=== PATIENT | male | born 1980 | race Caucasian/White ===

== ENCOUNTER 2018-06-11 16:03 | Emergency (ER) | payer SELFPAY ==
[2018-06-11 16:03] VITALS: BP 152/100; PULSE 114; RESP 16; TEMP 36.8; O2SAT 97; BMI 25.1
--- NOTE | 2018-06-11 16:20 | RAD_ITS ---
STUDY: X-RAY - LEFT KNEE REASON FOR EXAM: Male, 38 years old. Left knee pain for one year. TECHNIQUE: 4 view(s) of the knee. COMPARISON: None. FINDINGS: Normal visualized distal femur. Normal visualized proximal tibia and fibula. Normal proximal tibiofibular articulation. There is no acute fracture, dislocation or destructive osseous pathology. Normal medial femorotibial compartment. Normal lateral femorotibial compartment. Normal patellofemoral articulation. There is no demonstrated joint effusion. The soft tissue structures are unremarkable. RAD/Knee 4 or More Views IMPRESSION: Normal x-ray examination of the knee. Electronically Signed: Sabino Haynes DO at 16:42 EDT Tel [phone], Service support ,
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
--- NOTE | 2018-06-11 16:47 | ED.DEP ---
ED Disposition - Plan for ED Patient: Chief Complaint: Lower Extremity Injury Instructions: ED Knee Pain [facility] Prescriptions: Naproxen [Naprosyn] 500 mg PO BID PRN #20 tablet Referrals: Theodore Polo [Primary Care Provider] -
== END 2018-06-11 18:14 | disposition home or self-care (01) ==
LOC: ED 16:59
PROVIDERS: Emergency Provider Emergency Medicine; Family Provider Family Medicine; PCP Family Medicine
DX: M25.562 Pain in left knee (principal); G89.29 Other chronic pain
CPT/HCPCS: 73564; 99282

== ENCOUNTER 2018-06-24 20:48 | Emergency (ER) | payer SELFPAY ==
[2018-06-24 20:49] VITALS: BP 166/89; PULSE 109; RESP 14; TEMP 37.2; O2SAT 97; BMI 26.9
--- NOTE | 2018-06-24 21:25 | RAD_ITS ---
STUDY: X-RAY - LEFT SHOULDER REASON FOR EXAM: Male, 38 years old. Injury TECHNIQUE: 2 view(s) of the shoulder. COMPARISON: None. FINDINGS: There is comminuted fracture at the clavicle midshaft with overriding of fracture fragments. The glenohumeral and acromioclavicular joints are intact. There is no dislocation. No osseous destruction. IMPRESSION: Comminuted fracture of the left clavicular midshaft with overriding of fracture fragments Electronically Signed: Jaime Deluna MD at 21:58 EDT Tel , Service support , RAD/Shoulder min 2 Views
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
--- NOTE | 2018-06-24 22:21 | ED.DEP ---
ED Disposition - Plan for ED Patient: Chief Complaint: Upper Extremity Injury Instructions: ED Fx Clavicle Prescriptions: Hydrocodone Bitart/Apap 5-325 [[place] 5MG-325MG] 1 tab PO Q6H PRN PRN 3 Days #10 tab PRN Reason: Pain Referrals: Theodore Polo [Primary Care Provider] - Caprice Panchal DO [STAFF PHYSICIAN] -
[2018-06-24] MEDS: HYDROcodone Bitartrate/Apap 5/325 Tablet PO ×2 (22:27)
[2018-06-24 22:39] VITALS: RESP 16
== END 2018-06-24 22:53 | disposition home or self-care (01) ==
PROVIDERS: Emergency Provider Emergency Medicine; Family Provider Family Medicine; PCP Family Medicine
DX: S42.002A Fracture of unspecified part of left clavicle, initial encounter for closed fracture (principal); V86.59XA Driver of other special all-terrain or other off-road motor vehicle injured in nontraffic accident, initial encounter; Y93.9 Activity, unspecified; Y92.9 Unspecified place or not applicable; Z72.0 Tobacco use
CPT/HCPCS: 73030; 99283

== ENCOUNTER 2018-07-09 12:26 | Day surgery (SDC) | payer SELFPAY ==
[2018-07-09] VITALS (10 sets, daily range): BP systolic 124–140; BP diastolic 81–98; PULSE 55–93; RESP 14–20; TEMP 36.4–37.6; O2SAT 93–100; BMI 26.2
[2018-07-09] MEDS: Cefazolin 2 GM in 0.9% Normal Saline 100 ML IV (14:05)
--- NOTE | 2018-07-09 14:15 | RAD_ITS ---
STUDY: X-RAY - LEFT CLAVICLE REASON FOR EXAM: Male, 38 years old. Fluoroscopic guided ORIF TECHNIQUE: 2 view(s) of the clavicle. COMPARISON: None. FINDINGS: Fluoroscopic guided views of the left clavicle were obtained status post ORIF of comminuted midshaft fracture. Fracture fragments are in anatomic alignment and position RAD/Clavicle IMPRESSION: Status post ORIF mid clavicular fracture Electronically Signed: Raffi Menezes MD at 17:06 EDT , Service support ,
[2018-07-09] MEDS: Bupivacaine 0.25% 30 ML Vial (16:15)
--- NOTE | 2018-07-09 16:17 | DCINST_ITS ---
Discharge Diet: No Restrictions - sling at all times, leave dressing on until seen in postop clinic, if get incision wet, remove and replace, may move elbow and hands as tolerated Discharge Activity: May Not Drive May shower in (days): 1 Ice area for (Minutes): 20 - Every hour while awake. Weight Bearing Status: Weight bearing as tolerated Keep extremity elevated above heart level: Operative Extremity Call your doctor if your incision/area has: Continuous Slow Oozing, Sudden Increased Bleeding, Increased Pain/ Swelling, Increased Redness, Foul Smelling Discharge Call your doctor if you observe: Fever of 101 or Higher, Coldness, Increased Pain, Numbness or Tingling, Change in Color, Calf discomfort Allergies/Adverse Reactions: Allergies No Known Allergies Allergy (Verified 07/01/18 14:32) Medications to take at Discharge Ibuprofen 600 mg PO PRN PRN 07/07/18 Multivitamin [Multiple Vitamins] 1 each PO DAILY 07/07/18 Tramadol HCl [Ultram] 50 mg PO PRN PRN 07/07/18 Hydrocodone Bitart/Apap 5-325 [[place] 5MG-325MG] 1 - 2 tablet PO Q6H PRN PRN 5 Days #40 tablet 07/09/18 Zolpidem Tartrate [Ambien (Generic)] 5 mg PO QHS PRN PRN #14 tablet 07/09/18 The following prescriptions were given: Hydrocodone Bitart/Apap 5-325 [[place] 5MG-325MG] 1 - 2 tablet PO Q6H PRN PRN 5 Days #40 tablet PRN Reason: Pain Zolpidem Tartrate [Ambien (Generic)] 5 mg PO QHS PRN PRN #14 tablet PRN Reason: Insomnia Primary Care Physician: Theodore Polo [Primary Care Provider] - Test Results: Test results from this visit will be discussed in further detail at your follow- up appointment, if applicable. Please Follow Up With: Caprice Panchal, DO - [phone]
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
[2018-07-09] MEDS: Mupirocin Ointment 22gm Tube 1 APPLIC (16:39)
== END 2018-07-09 19:18 | disposition home or self-care (01) ==
LOC: SDC 12:27 → AC 12:28
PROVIDERS: Family Provider Family Medicine; PCP Family Medicine; Visit Provider Orthopaedic Surgery
PROC: (CPT 23515; principal; 2018-07-09 14:25)
DX: S42.022A Displaced fracture of shaft of left clavicle, initial encounter for closed fracture (principal); V87.8XXA Person injured in other specified noncollision transport accidents involving motor vehicle (traffic), initial encounter; Y93.89 Activity, other specified; Y92.9 Unspecified place or not applicable
CPT/HCPCS: 23515; 64415; 73000; 76000; C1713; J7120; J2405

== ENCOUNTER → 2018-07-22 13:56 | Outpatient (CLI) | payer SELFPAY | LOC: HPRAD 13:57 | PROVIDERS: Family Provider Family Medicine; PCP Family Medicine; Visit Provider Orthopaedic Surgery | DX: S42.002A Fracture of unspecified part of left clavicle, initial encounter for closed fracture (principal) | CPT/HCPCS: 73000 ==

== ENCOUNTER 2019-02-02 14:47 | Emergency (ER) | payer SELFPAY ==
[2019-02-02 14:48] VITALS: BP 140/96; PULSE 87; RESP 18; TEMP 37.2; O2SAT 99; BMI 24.4
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
[2019-02-02] MEDS: Acetaminophen 500 MG Tablet 1000 MG PO (15:53)
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
[2019-02-02 16:31] VITALS: BP 137/91; PULSE 102; RESP 15; O2SAT 99
== END 2019-02-02 16:10 | disposition home or self-care (01) ==
PROVIDERS: Emergency Provider Emergency Medicine; Family Provider Family Medicine; PCP Family Medicine
DX: S29.012A Strain of muscle and tendon of back wall of thorax, initial encounter (principal); V89.2XXA Person injured in unspecified motor-vehicle accident, traffic, initial encounter; Y93.9 Activity, unspecified; Y92.9 Unspecified place or not applicable; Y99.9 Unspecified external cause status
CPT/HCPCS: 72072; 99283

== ENCOUNTER 2019-04-08 23:36 | Emergency (ER) | payer MEDICAID, SELFPAY ==
[2019-04-08 23:37] VITALS: BP 140/78; PULSE 114; RESP 18; TEMP 36.7; O2SAT 95; BMI 25.8
--- NOTE | 2019-04-09 00:04 | RAD_ITS ---
STUDY: X-RAY - LEFT FOOT CLINICAL: Male, 38 years old. stepped on nail TECHNIQUE: 2 view(s) of the foot. COMPARISON: None. FINDINGS: Normal talus, calcaneus, and tarsal bones. Normal visualized subtalar, talonavicular, calcaneocuboid, tarsal and tarsometatarsal articulations. Normal metatarsi. Normal metatarsophalangeal joint of the great toe. Normal tibial and fibular sesamoid bones. Normal interphalangeal joint of the great toe. Normal phalanges of the great toe. Normal second through fifth metatarsophalangeal joints. Normal interphalangeal joints and phalanges of the lesser toes. The soft tissue structures are unremarkable. RAD/Foot 2 Views IMPRESSION: Normal x-ray examination of the foot. Electronically Signed: Maycol Austin, at 0:33 EDT Tel , Service support ,
--- NOTE | 2019-04-09 00:07 | ED.DCSUM_ITS ---
- ER Visit Summary Date of Service: 04/09/19 Chief Complaint: Stepped on nail History of Present Illness: The patient is a 38 M who presents after stepping on a nail with his left foot. Patient was wearing sandals in the nail which was embedded in a board went through his sandal and into his left foot. Patient was able to pull the board and the nail out. He does not know when his last tetanus update was. Patient is having pain at the site. He states the nail was somewhat elaina. He has no medical problems and takes no medications. No allergies. Physical Examination: Patient is awake and alert, well-nourished well-developed in no distress. Hemodynamically stable and afebrile. Examination of the left foot shows a small puncture wound to the left foot plantar surface over the ball of the foot. Mild surrounding ovoid erythema. Mild tenderness to palpation. No foreign bodies palpated. Test Results: Clinical Impression(s) from Imaging Studies Foot X-Ray 04/09/19 00:04 IMPRESSION: Normal x-ray examination of the foot. Electronically Signed: Maycol Austin, at 0:33 EDT Tel , Service support , Medications Given Discontinued Medications Ciprofloxacin HCl (Cipro) 500 mg PO X1 ONE Stop: 04/09/19 00:06 Last Admin: 04/09/19 00:24 Dose: 500 mg Diphtheria/Tetanus/Acell Pertussis (Adacel) 0.5 ml IM .ONCE ONE Stop: 04/09/19 00:06 Last Admin: 04/09/19 00:24 Dose: 0.5 ml Ibuprofen (Motrin) 600 mg PO X1 ONE Stop: 04/09/19 00:06 Last Admin: 04/09/19 00:24 Dose: 600 mg Emergency Department Course and Treatment: Patient's tetanus was updated. Because it was a elaina nail, x-ray was performed to look for any metal fragments in the foot. X-ray showed no bony involvement or foreign bodies. Patient was started on ciprofloxacin because of the puncture through the sole of his shoe. He was given Motrin for pain. Patient was discharged home with prescription for ciprofloxacin and strict return precautions. Discharged home. Treatment Plan: [] Disposition: [] Impression: Puncture wound to left foot, through sole of shoe This note was generated with [employer] dictation software. It may contain incorrect words, spelling, and punctuation that were not noted in review of the chart prior to signing ED Disposition - Plan for ED Patient: Disposition: Home or Assisted Living Instructions: ED Wound Puncture Foot Prescriptions: Ciprofloxacin [Cipro] 500 mg PO BID #14 tab Referrals: Theodore Polo [Primary Care Provider] - 3-5 Days if not improving Additional Instructions: Your tetanus was updated today. Please take the ciprofloxacin for the full 7 days to help prevent infection from the nail going through your shoe. If at any point you are concerned about infection in the wound, such as red streaking from the site, severe pain and swelling, or oozing pus at the site, please return immediately to the emergency department for a wound check. If you have any worsening of your condition or any new concerning symptoms, please return immediately to the emergency department for another evaluation.
[2019-04-09] MEDS: Ibuprofen 600 MG Tablet PO (00:24)
[2019-04-09] MEDS: Diphth,Pertuss(Acell),Tet Vac 0.5 ML Vial IM (00:24)
[2019-04-09] MEDS: Ciprofloxacin 250 MG Tablet 500 MG PO (00:24)
== END 2019-04-09 00:48 | disposition home or self-care (01) ==
PROVIDERS: Emergency Provider Emergency Medicine; Family Provider Family Medicine; PCP Family Medicine
DX: S91.332A Puncture wound without foreign body, left foot, initial encounter (principal); W45.0XXA Nail entering through skin, initial encounter; Y93.9 Activity, unspecified; Y92.9 Unspecified place or not applicable
CPT/HCPCS: 73620; 90471; 90715; 99283

== ENCOUNTER 2019-09-02 01:15 | Emergency (ER) | payer MEDICAID, SELFPAY ==
[2019-09-02 01:15] VITALS: BP 139/93; PULSE 111; RESP 18; TEMP 36.5; O2SAT 98; BMI 26.4
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
[2019-09-02] MEDS: Ibuprofen 400 MG Tablet 800 MG PO (02:19)
[2019-09-02 03:11] VITALS: PULSE 82; RESP 16; O2SAT 100
== END 2019-09-02 03:12 | disposition home or self-care (01) ==
PROVIDERS: Emergency Provider Emergency Medicine
DX: S02.832A Fracture of medial orbital wall, left side, initial encounter for closed fracture (principal); S01.81XA Laceration without foreign body of other part of head, initial encounter; Y04.2XXA Assault by strike against or bumped into by another person, initial encounter; Y93.9 Activity, unspecified; Y92.9 Unspecified place or not applicable
CPT/HCPCS: 12013; 70486; 99284

== ENCOUNTER 2020-01-24 00:15 | Emergency (ER) | payer MEDICAID, SELFPAY ==
[2020-01-24 00:16] VITALS: BP 138/83; PULSE 118; RESP 18; TEMP 36.9; O2SAT 96; BMI 29.3
--- NOTE | 2020-01-24 00:18 | RAD_ITS ---
STUDY: X-RAY - LEFT FOOT CLINICAL: Male, 39 years old. Pain top of foot. No known injury. TECHNIQUE: 3 view(s) of the foot. COMPARISON: None. FINDINGS: Normal talus, calcaneus, and tarsal bones. Normal visualized subtalar, talonavicular, calcaneocuboid, tarsal and tarsometatarsal articulations. Normal metatarsi. Normal metatarsophalangeal joint of the great toe. Normal tibial and fibular sesamoid bones. Normal interphalangeal joint of the great toe. Minimal irregularity proximal lateral corner of the distal phalanx great toe probably related to old trauma. Normal second through fifth metatarsophalangeal joints. Normal interphalangeal joints and phalanges of the lesser toes. The soft tissue structures are unremarkable. RAD/Foot min 3 Views IMPRESSION: No acute findings in the foot. Old posttraumatic changes base of the distal phalanx great toe. Electronically Signed: Santhosh Sim MD at 1:48 EST , Service support ,
--- NOTE | 2020-01-24 01:33 | ED.VIS.GEN ---
History of Present Illness Chief Complaint: Lower Extremity Injury Detail of Chief Complaint: Left foot pain Informant: Patient Onset: Yesterday Current Severity: Mild Maximum Severity: Moderate Narrative: Patient presents with pain and erythema on the medial portion of his left foot. He noticed earlier today. He does not remember specific injury. He has not had fevers or chills. He denies significant past medical history. Past Medical History - Allergies and Home Meds Allergies/Adverse Reactions: Allergies No Known Allergies Allergy (Verified 04/08/19 23:39) Primary Care Physician: Adair Betts III, MD [STAFF PHYSICIAN] - As Needed Prior records reviewed: Yes Lives: Spouse/ Significant Other Smoking Status: Never smoker Review of Systems General: Denies: Chills, Fever Eyes: Denies: Visual changes - bilaterally ENT: Denies: Bilateral ear pain Cardiovascular: Denies: Chest pain Respiratory: Denies: Dyspnea, Cough Gastrointestinal: Denies: Abdominal pain, Nausea, Vomiting, Diarrhea Musculoskeletal: Reports: Extremity Pain Skin: Reports: Rash Neurological: Denies: Headache Hematologic: Denies: Easy bruising Allergy: Denies: Uticaria Physical Exam Vital Signs/Narrative: Vital Signs Temp Pulse Resp BP Pulse Ox 01/24/20 00:16 98.5 F 118 H 18 138/83 H 96 Inital Vital Signs reviewed: Yes General: Well nourished, Well developed Head: Normocephalic ENT: Moist mucous membranes Neck: Supple Cardiovascular: Regular rate, Regular rhythm Respiratory: No distress, CTA bilaterally Abdomen: Soft, Nontender Extremities: - - Patient is an area of erythema measuring 6 x 8 cm along the medial portion of the left foot. There are no open wounds. Area is tender palpation and is warm to the touch. Calf is soft with no focal tenderness. No significant calf edema. Skin: - - Erythema as above Neurological: Alert, Oriented x3 Psychological: Normal affect Diagnostic/Tx/Re-eval Impressions Foot X-Ray 01/24/20 00:18 IMPRESSION: No acute findings in the foot. Old posttraumatic changes base of the distal phalanx great toe. Electronically Signed: Santhosh Sim MD at 1:48 EST , Service support , 01/24/20 00:18 Foot min 3 Views [RAD] Stat - Medical Decision Making On exam findings are concerning for gout, although this is a very atypical location for gout. It is over the medial joints of the proximal foot. This also could be simple cellulitis. Patient has no known history and denies any wound to the area. Patient will be treated with prednisone, [place], as well as clindamycin for infection. Area of erythema was outlined with surgical marker. Patient is referred to local PCP to establish primary care. ED Disposition - Plan for ED Patient: Disposition: Home or Assisted Living Diagnosis: Cellulitis, Gout Instructions: What Is Gout?, Cellulitis Prescriptions: Clindamycin [Cleocin] 300 mg PO 4X/DAY #80 cap Transmission Status: Received by [facility] [place] Prednisone [Deltasone] 40 mg PO DAILY #10 tab Transmission Status: Received by [facility] [place] Hydrocodone Bitart/Apap 5-325 [[place] 5MG-325MG] 1 tab PO Q6H PRN PRN 3 Days #10 tab PRN Reason: Pain Transmission Status: Received by [facility] [place] Referrals: Adair Betts III, MD [STAFF PHYSICIAN] - As Needed
[2020-01-24] MEDS: Clindamycin HCl 150 MG Capsule 300 MG PO (01:39)
[2020-01-24] MEDS: predniSONE 20 MG Tablet 40 MG PO (01:39)
[2020-01-24] MEDS: HYDROcodone Bitartrate/Apap 5/325 Tablet PO (01:39)
[2020-01-24 01:44] VITALS: PULSE 117; RESP 16; O2SAT 99
== END 2020-01-24 01:45 | disposition home or self-care (01) ==
PROVIDERS: Emergency Provider Emergency Medicine
DX: L03.116 Cellulitis of left lower limb (principal); M10.9 Gout, unspecified
CPT/HCPCS: 73630; 99283

== ENCOUNTER 2020-02-27 14:35 | Emergency (ER) | payer MEDICAID, SELFPAY ==
[2020-02-27 14:36] VITALS: BP 145/89; PULSE 89; RESP 16; TEMP 37.1; O2SAT 99; BMI 29.3
[2020-02-27 14:44] VITALS: BP 145/89; PULSE 89; RESP 16; TEMP 37.1; O2SAT 99
[2020-02-27 14:45] VITALS: O2SAT 99
--- NOTE | 2020-02-27 15:07 | ED.DCSUM_ITS ---
- ER Visit Summary Date of Service: 02/27/20 Chief Complaint: Sore throat History of Present Illness: The patient is a 39 M no dyspnea past medical history. Patient states had a sore throat since Saturday. No fever. Mild cough. No shortness of breath. Nonproductive cough. Denies any vomiting, diarrhea or dysuria. No abdominal pain. Physical Examination: Well-appearing middle-aged male. Vital signs are stable and afebrile. H EENT exam unremarkable. Pulse ox 99% room air no signs hypoxia. HEENT exam normal. Posterior pharynx without erythema or exudate. No swelling. No trouble swallowing or breathing. No stridor or drooling. TMs normal bilaterally. Neck nontender. No lymphadenopathy. Trachea midline. Nontender. Lungs clear to auscultation bilaterally. Heart regular rhythm rate about 85 no murmur. Abdomen soft nontender normal bowel sounds no peritoneal signs. Extremities moves all 4. Skin no rashes. Back normal. Neurologically is awake alert with no focal motor deficits. Test Results: Nursing sent a rapid strep which is negative. Emergency Department Course and Treatment: Patient history exam are consistent with viral syndrome. Clinically does not look like strep throat. He had no significant erythema or exudate. Tonsils not enlarged. And he has no lymphadenopathy. Treatment Plan: Warm salt water gargling. Tylenol for pain and/or fever. Follow-up if not improving. No antibiotics at this time. Disposition: Discharge Impression: Acute viral pharyngitis This note was generated with [employer] dictation software. It may contain incorrect words, spelling, and punctuation that were not noted in review of the chart prior to signing ED Disposition - Plan for ED Patient: Disposition: Home or Assisted Living Instructions: ED Pharyngitis Viral Referrals: Young Escobar MD [NON-STAFF] - Additional Instructions: Warm salt water gargling. Tylenol for pain and/or fever and body aches. Follow-up with local physician if not improving or return if feeling a lot worse.
--- NOTE | 2020-02-27 15:09 | ED.DEP ---
ED Disposition - Plan for ED Patient: Disposition: Home or Assisted Living Instructions: ED Pharyngitis Viral Referrals: Young Escobar MD [NON-STAFF] - Additional Instructions: Warm salt water gargling. Tylenol for pain and/or fever and body aches. Follow-up with local physician if not improving or return if feeling a lot worse.
== END 2020-02-27 15:50 | disposition home or self-care (01) ==
LOC: ED 15:13
PROVIDERS: Emergency Provider Emergency Medicine
DX: J02.8 Acute pharyngitis due to other specified organisms (principal); R05 Cough
CPT/HCPCS: 87880; 99283

== ENCOUNTER 2020-03-05 16:33 | Emergency (ER) | payer MEDICAID, SELFPAY ==
[2020-03-05 16:34] VITALS: BP 110/77; PULSE 115; RESP 15; TEMP 37.1; O2SAT 97; BMI 28.5
[2020-03-05 16:48] VITALS: PULSE 105; RESP 18; O2SAT 92
[2020-03-05] MEDS: Ibuprofen 600 MG Tablet PO (16:54)
--- NOTE | 2020-03-05 17:19 | RAD_ITS ---
STUDY: X-RAY CHEST REASON FOR EXAM: Male, 39 years old. COUGH TECHNIQUE: Single frontal view of the chest. COMPARISON: None. FINDINGS: Right basilar pneumonia. There is no demonstrated pleural abnormality. Normal size heart. Normal mediastinum and neil. Normal visualized pulmonary arteries. Normal visualized aortic arch and descending thoracic aorta. Normal visualized thoracic spine. Hardware in the left clavicle. There is no demonstrated abnormality of the visualized soft tissue structures of the upper abdomen. RAD/Chest 1 View (Portable) IMPRESSION: Right basilar pneumonia. Electronically Signed: Young Gomez MD at 17:32 EDT Tel , Service support ,
[2020-03-05 18:05] VITALS: BP 113/84; PULSE 86; RESP 18; TEMP 37.1; O2SAT 94
--- NOTE | 2020-03-05 18:14 | ED.DCSUM_ITS ---
- ER Visit Summary Date of Service: 03/05/20 Chief Complaint: Cough History of Present Illness: The patient is a 39 M with no primary care physician. He reports he has a cough that began 10 days ago. Is productive of clear sputum without blood. Said subjective fever and chills. He denies any shortness of breath. States he has a sore throat 6 out of 10 severity. Is had 4 episodes of posttussive emesis without blood in this. He denies any sick contacts. Has been self isolating. No recent travel. Physical Examination: Vitals: Stable. Afebrile. General: Well-nourished and well-developed. Head: Normocephalic atraumatic. HEENT: Pharyngeal erythema. No tonsillar exudate or enlargement. No cervical lymphadenopathy. Neck: Supple, no lymphadenopathy. No JVD. Nontender. Cardiovascular: Regular rate and rhythm. No murmurs. Respiratory: No respiratory distress. Clear to auscultation bilaterally. Abdominal: Soft, nontender, nondistended, normal bowel sounds. No guarding, rebound, or peritoneal signs. Back: Nontender. Extremities: Nontender, no edema. Skin: Normal color, no rash. Neurologic: Alert and oriented ?3. Cranial nerves II through XII are intact. Normal strength and sensation. Psych: Normal affect. Test Results: Clinical Impression(s) from Imaging Studies Chest X-Ray 03/05/20 17:19 IMPRESSION: Right basilar pneumonia. Electronically Signed: Young Gomez MD at 17:32 EDT Tel , Service support , Emergency Department Course and Treatment: Patient was given a dose of doxycycline ibuprofen. He is resting comfortably. Treatment Plan: Patient be discharged with doxycycline. Instructed on symptomatic care. Push fluids. Use Tylenol and ibuprofen for pain or fever. Follow-up Dr. Adair Betts iii in 1 week if not improving. Return to the emergency department for any worsening symptoms. Disposition: To home in improved and stable condition. Impression: 1. Pneumonia, community-acquired. This note was generated with [employer] software. It may contain incorrect words, spelling, and punctuation that were not noted in review of the chart prior to signing ED Disposition - Plan for ED Patient: Disposition: Home or Assisted Living Instructions: What Is Pneumonia? Prescriptions: Doxycycline 100 mg PO BID #14 cap Prescription Printed Referrals: Adair Betts III, MD [STAFF PHYSICIAN] - 1 Week
[2020-03-05 18:27] VITALS: BP 111/75; PULSE 80; RESP 16; O2SAT 95
[2020-03-05] MEDS: Doxycycline 100 MG CAPSULE PO (18:28)
== END 2020-03-05 18:29 | disposition home or self-care (01) ==
LOC: ED 17:05
PROVIDERS: Emergency Provider Emergency Medicine
DX: J18.9 Pneumonia, unspecified organism (principal)
CPT/HCPCS: 71045; 99284

== ENCOUNTER 2020-06-20 19:13 | Emergency (ER) | payer MEDICAID, SELFPAY ==
[2020-06-20] VITALS (7 sets, daily range): BP systolic 106–149; BP diastolic 72–101; PULSE 89–115; RESP 13–26; TEMP 36.2; O2SAT 95–100; BMI 28.5
--- NOTE | 2020-06-20 19:26 | ED.DCSUM_ITS ---
- ER Visit Summary Date of Service: 06/20/20 Chief Complaint: Steak stuck in his esophagus History of Present Illness: The patient is a 40 M no seen past medical history. Prior hernia repair and prior collarbone fracture surgery. He states today for lunch he had steak and macaroni. He has been unable to swallow since that time. Denies any significant pain. No trouble breathing. States has had this happen before but is never needed to come the hospital for and is never had endoscopy for it. Denies any other complaints. Physical Examination: Middle-aged male no acute distress vital signs stable afebrile. Pulse ox 95% room air no signs hypoxia. H EENT exam posterior phary nx unremarkable. Moist mucous membranes. Patient is unable to swallow water at this time. Neck nontender no lymphadenopathy. Lungs clear. Heart regular rhythm rate about 100 no murmur. Abdomen soft nontender normal bowel sounds no peritoneal signs. Extremities moves all 4. No edema. Neurologically is awake and alert. Test Results: None Emergency Department Course and Treatment: I discussed with the general surgeon on-call Dr. Ankur Vargas. He will be in to evaluate the patient and most likely perform upper endoscopy for foreign body removal. I performed conscious sedation using IV propofol. Patient received 60 mg IV initial bolus and and [address] Vargas was able to visualize the meat bolus in the distal esophagus and pushed down in the stomach. Patient tolerated procedure well. He never became hypotensive nor did he become hypoxic. His vital signs stayed stable the entire time. He is doing well currently recovering from the sedation. Treatment Plan: Follow-up with Dr. Vargas as an outpatient. Disposition: Discharge Impression: Acute esophageal meat bolus Conscious sedation by ER Upper endoscopy by general surgery This note was generated with [employer] dictation software. It may contain incorrect words, spelling, and punctuation that were not noted in review of the chart prior to signing ED Disposition - Plan for ED Patient: Referrals: Care Physician,No Primary [Primary Care Provider] -
[2020-06-20] MEDS: Propofol 200 MG/20 ML Vial 40 MG IV BOLUS (20:53)
[2020-06-20] MEDS: Propofol 200 MG/20 ML Vial IV BOLUS (20:53)
--- NOTE | 2020-06-20 21:07 | ED.DEP ---
ED Disposition - Plan for ED Patient: Disposition: Home or Assisted Living Instructions: ED Foreign Body Esophageal Rslv Referrals: Huber Vargas MD [STAFF PHYSICIAN] - 1 Week if not improving Additional Instructions: Dr. Ankur Vargas did upper endoscopy. He was able to push the meat bolus down in your stomach. Make sure you chew your food thoroughly and eat slowly to prevent food from getting stuck in your throat.
--- NOTE | 2020-06-20 21:18 | OP.CCLET_ITS ---
06/20/2020 No Primary Care Physician Re : Upper GI endoscopy procedure for [facility] Cro[facility] Physician This procedure was performed on Saturday, June 20, 2020. My impressions and recommendations are as follows: Impressions : - Food was found in the esophagus. Removal was successful. - Normal stomach. No specimens collected. - Normal duodenal bulb. No specimens collected. Recommendations : - Discharge patient to home. - Full liquid diet for 3 days. - Continue present medications. - Repeat upper endoscopy (date not yet determined) for surveillance. - Return to primary care physician (date not yet determined). My findings are described in the full procedure note, which is enclosed. If I can be of further assistance, please feel free to contact me at Doctor phone number(s): , Fax: [phone], Work: . Sincerely, MD Huber Porter MD 06/20/2020 9:17:34 PM This report has been signed electronically.
--- NOTE | 2020-06-20 21:18 | OP.EGD_ITS ---
Patient Name: Walt Crowe Procedure Date: 06/20/2020 8:43 PM Date of : 1980 Age: 40 Procedure: Upper GI endoscopy Indications: Foreign body in the esophagus Providers: Huber Vargas MD Medicines: Propofol total dose 240 mg IV given by Dr. Dariusz MENDOZA Patient Profile: This is a 40 year old male. Refer to note in patient chart for documentation of history and physical. Complications: No immediate complications. Procedure: Pre-Anesthesia Assessment: - Prior to the procedure, a History and Physical was performed, and patient medications and allergies were reviewed. The patient's tolerance of previous anesthesia was also reviewed. The risks and benefits of the procedure and the sedation options and risks were discussed with the patient. All questions were answered, and informed consent was obtained. Prior Anticoagulants: The patient has taken no previous anticoagulant or antiplatelet agents. ASA Grade Assessment: II - A patient with mild systemic disease. After reviewing the risks and benefits, the patient was deemed in satisfactory condition to undergo the procedure. After obtaining informed consent, the endoscope was passed under direct vision. Throughout the procedure, the patient's blood pressure, pulse, and oxygen saturations were monitored continuously. The Endoscope was introduced through the mouth, and advanced to the duodenal bulb. The upper GI endoscopy was accomplished without difficulty. The patient tolerated the procedure well. Scope In: 8:54:20 PM Scope Out: 8:59:44 PM Total Procedure Duration Time 0 hours 5 minutes 24 seconds Findings: Food was found in the distal esophagus. Removal was accomplished with an advancement of steak into the stomach. There was minior irriation to the ge junction. The entire examined stomach was normal. No biopsies or other specimens were collected for this exam. The duodenal bulb was normal. No biopsies or other specimens were collected for this exam. Impression: - Food was found in the esophagus. Removal was successful. - Normal stomach. No specimens collected. - Normal duodenal bulb. No specimens collected. Recommendation: - Discharge patient to home. - Full liquid diet for 3 days. - Continue present medications. - Repeat upper endoscopy (date not yet determined) for surveillance. - Return to primary care physician (date not yet determined). Procedure Code(s): --- Professional --- 70386, Esophagogastroduodenoscopy, flexible, transoral; with removal of foreign body(s) Diagnosis Code(s): --- Professional --- T18.128A, Food in esophagus causing other injury, initial encounter T18.108A, Unspecified foreign body in esophagus causing other injury, initial encounter CPT copyright 2017 [employer]. All rights reserved. The codes documented in this report are preliminary and upon medical biller/coder review may be revised to meet current compliance requirements. MD Huber Porter MD 06/20/2020 9:17:34 PM This report has been signed electronically. Number of Addenda: 0 Note Initiated On: 06/20/2020 8:43 PM
== END 2020-06-20 22:54 | disposition home or self-care (01) ==
PROVIDERS: Surgery; Emergency Provider Emergency Medicine
PROC: 0DJ08ZZ Inspection of Upper Intestinal Tract, Via Natural or Artificial Opening Endoscopic (ICD-10-PCS; CPT 43235; principal; 2020-06-20 20:30)
DX: T18.128A Food in esophagus causing other injury, initial encounter (principal); X58.XXXA Exposure to other specified factors, initial encounter; Y93.9 Activity, unspecified; Y92.9 Unspecified place or not applicable; Y99.9 Unspecified external cause status
CPT/HCPCS: 43247; 99283; J7030; A4216

== ENCOUNTER → 2020-10-18 | Outpatient (CLI) | payer MEDICAID, SELFPAY ==
[2020-10-18 16:22] VITALS: BMI 25.8
== END | disposition home or self-care (01) ==
LOC: LABSPEC 17:40
PROVIDERS: Visit Provider Physician Assistant Surgical
DX: R53.83 Other fatigue (principal); M79.10 Myalgia, unspecified site
CPT/HCPCS: 87635; U0003

== ENCOUNTER 2021-05-15 03:49 | Emergency (ER) | payer MEDICAID, SELFPAY ==
[2020-10-18 16:22] VITALS: BMI 25.8
[2021-05-15 03:50] VITALS: BP 126/83; PULSE 98; RESP 15; TEMP 36.3; O2SAT 99; BMI 31.0
[2021-05-15 04:37] LABS: Absolute Lymphocyte Count 2.01 X10^3/uL (0.83-4.51); Absolute Neutrophil Count 3.2 X10^3/uL (2.0-7.7); Basophil# 0.02 X10^3/uL; Basophil% 0.3 % (0-1); Eosinophils% 10.6 % (0-5); Hematocrit 37.6 % (40-54); Hemoglobin 12.3 g/dL (13.0-16.5); Lymphocyte # 2.01 X10^3/ul (0.83-4.51); Lymphocyte % 30.4 % (19-41); Mean Corp Hgb Conc 32.7 g/dL (32-36); Mean Corpuscular Hgb 29.2 pg (27.0-32.0); Mean Corpuscular Volume 89.3 fL (80-94); Mean Platelet Vol. 10.1 fl (6.2-12.0); Monocyte% 10.6 % (0-10); NRBC Flagged by Analyzer 0 % (0-5); Neutrophil # 3.16 X10^3/uL (2.7-7.7); Neutrophil % 47.8 % (47-70); Platelet Count 193 K/mm3 (150-450); RBC Distribution Width SD 39.2 fl (35.1-43.9); Red Blood Count 4.21 M/mm3 (4.6-6.2); White Blood Count 6.6 K/mm3 (4.4-11.0)
[2021-05-15 04:48] LABS: Anion Gap 4 (5-15); BUN 17 mg/dL (7-18); Calcium,Total 8.7 mg/dL (8.5-10.1); Chloride 103 mmol/L (98-107); Creatinine, Serum 0.95 mg/dL (0.70-1.30); EST Glomerular Filtration Rate 94 mL/min (>60); Est Glom Filt Rate - Afr Amer 113 mL/min (>60); Estimated Creatinine Clearance 110.09 ml/min; Glucose 97 mg/dL (74-106); Potassium 3.7 mmol/L (3.5-5.1); Sodium Level 139 mmol/L (136-145)
[2021-05-15] MEDS: Ketorolac 30 MG/ML Syringe IV (04:51)
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
[2021-05-15 07:49] VITALS: BP 132/79; PULSE 81; RESP 16; O2SAT 99
--- NOTE | 2021-05-15 07:51 | ED.RN ---
THIS NURSE REVIEWED D/C INSTRUCTIONS WITH PT. PT VERBALIZED UNDERSTANDING OF INSTRUCTIONS. IV D/C. IV CATHETER INTACT. PT TOLERATED WELL. PT DENIES FURTHER NEEDS OR QUESTIONS AT THIS TIME
== END 2021-05-15 07:52 | disposition home or self-care (01) ==
PROVIDERS: Emergency Provider Emergency Medicine
DX: L03.115 Cellulitis of right lower limb (principal)
CPT/HCPCS: 80048; 85025; 87040; 96365; 96366; 96375; 99283; J7030; J7040; A4216

== ENCOUNTER 2021-05-18 17:14 | Emergency (ER) | payer MEDICAID, SELFPAY ==
[2021-05-18 17:15] VITALS: BP 127/73; PULSE 94; RESP 22; TEMP 37; O2SAT 96; BMI 30.1
[2021-05-18 17:19] VITALS: BP 127/73; PULSE 102; RESP 22; TEMP 37; O2SAT 96
[2021-05-18 17:34] VITALS: BP 127/76; PULSE 102; RESP 22; TEMP 37; O2SAT 96
--- NOTE | 2021-05-18 17:40 | EDS_ITS ---
HPI History of Present Illness Chief Complaint: Cellulitis Informant: patient and spouse/S.O. Onset/Context/Timing Onset: Days Context: Gradual Onset Timing: Continuous Current Severity: Mild Maximum Severity: Mild Narrative Narrative: 41-year-old male status post stepped on either screw or nail on Saturday. Was diagnosed with cellulitis. Is currently on Bactrim and Keflex. Does not believe it is getting better. He has been treated for around 3 days. He is never had a DVT or PE. No recent travel surgery or immobilization. He denies any fever or chills. Prior similar symptoms: No Recent Illness/Hospitalization: No PFSH PFSH Medical History Clavicle fracture Gout Home Medications cephalexin 500 mg PO Q6 #40 cap 05/15/21 [Rx Last Taken Unknown] sulfamethoxazole-trimethoprim [Bactrim DS] 1 tab PO Q12H #20 tab 05/15/21 [Rx Last Taken Unknown] Allergy/AdvReac Type Severity Reaction Status Date / Time No Known Allergies Allergy Verified 06/20/20 19:17 Surgical History H/O hernia repair Social History Smoking Status: Never smoker ROS ROS ED ROS Narrative Patient denies recent illness. Review of Systems ROS Unobtainable: Denies due to encephalopathy Constitutional Constitutional ED: Denies chills or fever(s) Eyes Eyes: Denies change in vision ENT ENT ED: Denies ear pain or sore throat Cardiovascular Cardiovascular: Denies chest pain Respiratory/Chest Respiratory/Chest: Denies cough or dyspnea Gastrointestinal Gastrointestinal: Denies abdominal pain, diarrhea, nausea or vomiting Genitourinary Genitourinary ED: Denies dysuria Musculoskeletal Musculoskeletal: Denies myalgias Integumentary Denies rash Neurologic Neurologic: Denies headache(s) Psychiatric Psychiatric: Denies depression Endocrine Endocrinology: Denies polyuria Allergic/Immunologic Allergic/Immunologic ED: Denies urticaria EXAM Physical Exam Narrative Exam Narrative: Middle-aged male no acute distress. Vital signs stable afebrile. Const Vital Signs: 05/18/21 17:15 05/18/21 17:19 05/18/21 17:34 Temperature 98.6 F 98.6 F 98.6 F Temperature Source Temporal Temporal Temporal Pulse Rate 94 102 H 102 H Respiratory Rate 22 H 22 H 22 H Blood Pressure 127/73 H 127/73 H 127/76 H Blood Pressure Mean 91 91 93 Pulse Ox 96 96 96 Oxygen Delivery Method Room Air Room Air Room Air Positive well nourished and well developed General Appearance ED: well developed HEENT Reports moist mucous membranes Negative for trauma or tenderness Eyes PERRL and EOMs intact bilaterally Neck no lymphadenopathy and supple Chest Wall inspection of chest normal and palpation of chest normal Resp normal respiratory effort and clear to auscultation bilaterally Cardio regular rate, regular rhythm and no murmurs GI normal to inspection, nondistended, normoactive bowel sounds, non-tender, non- distended and no masses Auscultation: normoactive bowel sounds Palpation: soft; Negative for tender, guarding or rebound tenderness present Back/Spine no CVA tenderness Extremity normal to inspection Extremity Narrative: Extremities are normal except right foot and lower leg below the knee are tender red and swollen. Foot is neurovascularly intact. Normal DP pulse. Able to wiggle his toes. Normal touch sensation. This is consistent with cellulitis. Could also be a secondary blood clot. There is no bony deformity. There is a puncture wound that is closed on the bottom instep of his right foot. There is no inguinal lymphadenopathy. No swelling or streaking above the knee. Neuro oriented x3 and CN's II-XII intact bilaterally Sensorium / Orientation: alert Motor Exam: strength 5/5 throughout Psych mental status grossly normal Skin no rashes or lesions noted MDM MDM MDM Narrative Medical decision making narrative: 41-year-old male with cellulitis of his right lower extremity after stepping on a nail a screw. He is currently on appropriate antibiotics. Does not feel he is getting better. X-ray will be obtained of the foot to evaluate for possible osteomyelitis. Screening labs. And a venous study was right lower extremity to rule out a DVT. Repeat exam patient is doing well at 6:45 PM. He will continue his current antibiotics and outpatient follow-up. Return if worse. Lab Data Attestation: I reviewed the patient's lab results. Lab results narrative: CBC normal white count 6. Hemoglobin 12. Electrolytes unremarkable normal gap of 3 normal creatinine of 1. X-ray of the foot shows no acute abnormality. No foreign body nor osteomyelitis. Interpreted by myself and the radiologist. Venous study of the lower extremities showed no DVT. Labs: Laboratory Results - last 24 hr 05/18/21 05/18/21 17:55 17:55 WBC 6.7 RBC 4.36 L Hgb 12.8 L Hct 39.1 L MCV 89.7 MCH 29.4 MCHC 32.7 RDW Std Deviation 38.5 RDW Coeff of Solomon 11.9 Plt Count 202 MPV 10.3 Immature Gran % (Auto) 0.200 Neut % (Auto) 57.9 Lymph % (Auto) 22.5 [place] % (Auto) 9.6 Eos % (Auto) 9.5 H Baso % (Auto) 0.3 Absolute Neuts (auto) 3.9 Absolute Lymphs (auto) 1.50 Nucleated RBC % 0 Sodium 139 Potassium 4.4 Chloride 105 Carbon Dioxide 31.0 Anion Gap 3 L BUN 16 Creatinine 1.08 Estim Creat Clear Calc 96.84 Est GFR (MDRD) Af Amer 97 Est GFR (MDRD) Non-Af 81 BUN/Creatinine Ratio 14.8 Glucose 96 Calcium 9.0 Radiography Diagnostic Testing: Radiology Impression Venous Duplex 05/18/21 17:44 IMPRESSION: Normal venous Doppler ultrasound of the lower extremity. Electronically Signed: Trenton Anderson MD at 18:37 EDT Tel , Service support , Foot X-Ray 05/18/21 18:11 IMPRESSION: Normal x-ray examination of the foot. No radiographic evidence of osteomyelitis. Electronically Signed: Trenton Anderson MD at 18:36 EDT Tel , Service support , Foot x-ray shows no acute abnormality. 3 views interpreted by myself and the radiologist. Discharge Plan Triage Chief Complaint: Cellulitis ED Provider: José Antonio Arzola Dx/Rx/DC Orders Clinical Impression: Cellulitis Instructions: Cellulitis Prescriptions: No Action sulfamethoxazole-trimethoprim [Bactrim DS] 800-160 mg tablet 1 tab PO Q12H Qty: 20 RF: 0 cephalexin 500 mg capsule 500 mg PO Q6 Qty: 40 RF: 0 Primary Care Provider: Care Physician,No Primary Referrals: Moshe Diaz MD [STAFF PHYSICIAN] - 1 Week if not improving Care Physician,No Primary [Primary Care Provider] - Activity Restrictions/Additional Instructions: Continue your antibiotics as prescribed. Make sure you take them all and finished both prescriptions. Elevate your foot to decrease the swelling. Tylenol and/or Motrin for pain. Return if it is looking a lot worse, fever, worsening pain or goes above your knee. Disposition Disposition: Home, self care
--- NOTE | 2021-05-18 17:44 | US_ITS ---
STUDY: VENOUS DOPPLER ULTRASOUND - RIGHT LOWER EXTREMITY REASON FOR EXAM: Male, 41 years old. RT LOWER LEG CELLULITIS REDNESS AND SWELLING TECHNIQUE: Ultrasound evaluation of the deep vein system to include ross-scale imaging and compression was performed. Ross-scale imaging and Doppler sonographic evaluation, including duplex spectral analysis and qualitative color flow sonography, was performed. COMPARISON: None. FINDINGS: Common Femoral Vein: Normal compression, spontaneity and augmentation. Normal color Doppler. Common Femoral Vein/Greater Saphenous Junction: Normal compression, spontaneity and augmentation. Normal color Doppler. Deep Femoral Vein: Normal compression, spontaneity and augmentation. Normal color Doppler. Femoral Proximal: Normal compression, spontaneity and augmentation. Normal color Doppler. Femoral Middle: Normal compression, spontaneity and augmentation. Normal color Doppler. Femoral Distal: Normal compression, spontaneity and augmentation. Normal color Doppler. Popliteal Vein: Normal compression, spontaneity and augmentation. Normal color Doppler. Posterior Tibial Vein: Normal compression, spontaneity and augmentation. Normal color Doppler. Peroneal Vein: Normal compression, spontaneity and augmentation. Normal color Doppler. US/Venous Duplex Imag/Limited/Uni IMPRESSION: Normal venous Doppler ultrasound of the lower extremity. Electronically Signed: Trenton Anderson MD at 18:37 EDT Tel , Service support ,
[2021-05-18 18:00] LABS: Absolute Neutrophil Count 3.9 X10^3/uL (2.0-7.7); Basophil# 0.02 X10^3/uL; Basophil% 0.3 % (0-1); Eosinophil# 0.63 X10^3/uL; Eosinophils% 9.5 % (0-5); Hematocrit 39.1 % (40-54); Hemoglobin 12.8 g/dL (13.0-16.5); Lymphocyte % 22.5 % (19-41); Mean Corp Hgb Conc 32.7 g/dL (32-36); Mean Corpuscular Hgb 29.4 pg (27.0-32.0); Mean Corpuscular Volume 89.7 fL (80-94); Mean Platelet Vol. 10.3 fl (6.2-12.0); Monocyte# 0.64 X10^3/uL; Monocyte% 9.6 % (0-10); NRBC Flagged by Analyzer 0 % (0-5); Neutrophil # 3.86 X10^3/uL (2.7-7.7); Neutrophil % 57.9 % (47-70); Platelet Count 202 K/mm3 (150-450); RBC Distribution Width CV 11.9 % (11.6-14.6); RBC Distribution Width SD 38.5 fl (35.1-43.9); Red Blood Count 4.36 M/mm3 (4.6-6.2); White Blood Count 6.7 K/mm3 (4.4-11.0)
--- NOTE | 2021-05-18 18:11 | RAD_ITS ---
STUDY: X-RAY - RIGHT FOOT CLINICAL: Male, 41 years old. Right foot pain and swelling after puncture wound TECHNIQUE: 3 view(s) of the foot. COMPARISON: None. FINDINGS: Normal talus, calcaneus, and tarsal bones. Normal visualized subtalar, talonavicular, calcaneocuboid, tarsal and tarsometatarsal articulations. Normal metatarsi. Normal metatarsophalangeal joint of the great toe. Normal tibial and fibular sesamoid bones. Normal interphalangeal joint of the great toe. Normal phalanges of the great toe. Normal second through fifth metatarsophalangeal joints. Normal interphalangeal joints and phalanges of the lesser toes. The soft tissue structures are unremarkable. RAD/Foot min 3 Views IMPRESSION: Normal x-ray examination of the foot. No radiographic evidence of osteomyelitis. Electronically Signed: Trenton Anderson MD at 18:36 EDT Tel , Service support ,
[2021-05-18 18:13] LABS: Anion Gap 3 (5-15); BUN 16 mg/dL (7-18); BUN/Creat Ratio 14.8 RATIO (10-20); Chloride 105 mmol/L (98-107); Creatinine, Serum 1.08 mg/dL (0.70-1.30); EST Glomerular Filtration Rate 81 mL/min (>60); Est Glom Filt Rate - Afr Amer 97 mL/min (>60); Estimated Creatinine Clearance 96.84 ml/min; Glucose 96 mg/dL (74-106); Potassium 4.4 mmol/L (3.5-5.1); Sodium Level 139 mmol/L (136-145)
== END 2021-05-18 18:56 | disposition home or self-care (01) ==
PROVIDERS: Emergency Provider Emergency Medicine
DX: L03.115 Cellulitis of right lower limb (principal); W45.0XXA Nail entering through skin, initial encounter; Y93.9 Activity, unspecified; Y92.9 Unspecified place or not applicable; M10.9 Gout, unspecified
CPT/HCPCS: 73630; 80048; 85025; 93971; 99283; A4216

== ENCOUNTER 2021-05-27 22:30 | Emergency (ER) | payer MEDICAID, SELFPAY ==
[2021-05-27 22:31] VITALS: BP 145/90; PULSE 122; RESP 16; TEMP 37.2; O2SAT 98
[2021-05-27 23:12] VITALS: BP 144/95; PULSE 106; RESP 18; TEMP 36.8; O2SAT 99
--- NOTE | 2021-05-27 23:13 | EX.ED.DYSGE1 ---
HPI History of Present Illness Chief Complaint: Cellulitis Informant: patient Onset/Context/Timing Onset: Weeks (2) Context: Gradual Onset Timing: Continuous Quality: sore, red, swollen Location: RLE, now also LLE Current Severity: Moderate Maximum Severity: Moderate Worsened by: palpation, walking Relieved by: nothing. taking his ABx. Associated Symptoms Associated Symptoms: no systemic sx or fevers/chills Narrative Narrative: Patient seen here almost 2 weeks ago near the onset of pain and redness in his right lower extremity, diagnosed with cellulitis placed on cephalexin and Keflex, he has been taking the antibiotics and things seem to be hurting worse and being more erythematous. Now his left lower extremity is affected. He states he stepped on a screw on his right foot, that wound is healing well and not hurting anymore, plantar aspect. He denies any injury to his left and does not know why it is affecting that. He recently had a repeat visit, he had ultrasound showing no DVT or evidence of bony involvement, and he was to continue the antibiotics which he has been doing. [facility] Medical History Clavicle fracture Gout Home Medications cephalexin 500 mg PO Q6 #40 cap 05/15/21 [Rx Last Taken Unknown] sulfamethoxazole-trimethoprim [Bactrim DS] 1 tab PO Q12H #20 tab 05/15/21 [Rx Last Taken Unknown] doxycycline monohydrate 100 mg PO BID #20 capsule 05/28/21 [Rx Last Taken Unknown] Allergy/AdvReac Type Severity Reaction Status Date / Time No Known Allergies Allergy Verified 05/27/21 22:33 Surgical History H/O hernia repair Social History Smoking Status: Never smoker ROS ROS ED Constitutional Constitutional ED: Denies chills or fever(s) Eyes Eyes: Denies change in vision or diplopia ENT ENT ED: Denies rhinorrhea or sore throat Cardiovascular Cardiovascular: Denies chest pain or palpitations Respiratory/Chest Respiratory/Chest: Denies cough or dyspnea Gastrointestinal Gastrointestinal: Denies abdominal pain, diarrhea, nausea or vomiting Genitourinary Genitourinary ED: Denies dysuria or hematuria Musculoskeletal Musculoskeletal: Reports extremity pain; Denies back pain or neck pain Integumentary Reports as per HPI, erythema and rash; Denies abscess Neurologic Neurologic: Denies headache(s), paresthesias or weakness Psychiatric Psychiatric: Denies anxiety or suicidal thoughts EXAM Physical Exam Const Vital Signs: 05/27/21 22:31 05/27/21 23:12 Temperature 98.9 F 98.2 F Temperature Source Temporal Oral Pulse Rate 122 H 106 H Respiratory Rate 16 18 Blood Pressure 145/90 H 144/95 H Blood Pressure Mean 108 111 Pulse Ox 98 99 Oxygen Delivery Method Room Air Room Air Positive well nourished and well developed General Appearance ED: well developed and NAD HEENT Reports moist mucous membranes normocephalic and atraumatic Eyes PERRL and EOMs intact bilaterally Neck full ROM and supple Resp normal respiratory effort and clear to auscultation bilaterally Cardio regular rate, regular rhythm and no murmurs GI non-tender and non-distended Auscultation: normoactive bowel sounds Palpation: soft Back/Spine no CVA tenderness General Back: other FROM Extremity full ROM Extremity Narrative: Blanching erythema without petechia, purpura, or bullae both lower extremities almost symmetric, proximal borders are not well circumscribed, involves entire feet. All of it is tender and mildly warm. No abscess. No lymphangitis. No inguinal lymphadenopathy bilaterally. Full range of motion of all joints. Lower extremities mildly edematous. General Extremety ED: Negative for edema, pulses abnormal or tenderness General Extremity: Negative for edema or pulses abnormal Neuro oriented x3, CN's II-XII intact bilaterally and no sensory deficits noted Sensorium / Orientation: awake and alert Motor Exam: strength 5/5 throughout Skin no wounds Skin Narrative: As above erythema to both lower extremities, distal legs and into feet. They are tender. There is a healing pinpoint lesion in the plantar arch of the right foot consistent with a puncture wound that is nontender without erythema or abscess. Webspaces are clear of any acute lesion or evidence of foreign body. MDM MDM MDM Narrative Medical decision making narrative: The appearance of this is consistent with cellulitis, however now that it is in his other leg I question whether this could be something else such as vasculitis, some type of skin reaction, or sunburn. However, it is not improving. I offered IV antibiotics and admission, he adamantly refuses to be admitted. He understands that with blood test available in the ER I may not be able to give him definitive answers or rule in/out any of these possibilities and that we he will need to follow-up if he wants further answers, unless he wants to be admitted. He understands this and refuses to stay. I did give him a dose of IV vancomycin empirically in case this is infectious, which is certainly could be. He is out of the Bactrim which I do not think he needs since there is no sign of an abscess, he has a few cephalexin left, I will prescribe him doxycycline since the cephalexin obviously is not helping this, so at least he is trying something different in the meantime. Lab Data Attestation: I reviewed the patient's lab results. Labs: Laboratory Results - last 24 hr 05/27/21 05/27/21 23:03 23:03 WBC 6.0 RBC 4.38 L Hgb 12.9 L Hct 38.8 L MCV 88.6 MCH 29.5 MCHC 33.2 RDW Std Deviation 38.2 RDW Coeff of Solomon 11.9 Plt Count 241 MPV 10.5 Immature Gran % (Auto) 0.500 Neut % (Auto) 44.3 L Lymph % (Auto) 34.8 [place] % (Auto) 8.9 Eos % (Auto) 11.0 H Baso % (Auto) 0.5 Absolute Neuts (auto) 2.7 Absolute Lymphs (auto) 2.08 Nucleated RBC % 0 Sodium 140 Potassium 3.7 Chloride 105 Carbon Dioxide 29.0 Anion Gap 6 BUN 17 Creatinine 1.19 Estim Creat Clear Calc 87.89 Est GFR (MDRD) Af Amer 87 Est GFR (MDRD) Non-Af 72 BUN/Creatinine Ratio 14.3 Glucose 91 Calcium 8.9 Discharge Plan Triage Chief Complaint: Cellulitis ED Provider: Beny Araujo Dx/Rx/DC Orders Clinical Impression: Bilateral cellulitis of lower leg Instructions: ED Cellulitis Prescriptions: New doxycycline monohydrate 100 MG capsule 100 mg PO BID Qty: 20 RF: 0 No Action sulfamethoxazole-trimethoprim [Bactrim DS] 800-160 mg tablet 1 tab PO Q12H Qty: 20 RF: 0 cephalexin 500 mg capsule 500 mg PO Q6 Qty: 40 RF: 0 Primary Care Provider: Care Physician,No Primary Referrals: Castro Alvarez MD [STAFF PHYSICIAN] - As soon as possible Care Physician,No Primary [Primary Care Provider] - Disposition Disposition: Home, Self Care
[2021-05-27 23:28] LABS: Anion Gap 6 (5-15); BUN 17 mg/dL (7-18); BUN/Creat Ratio 14.3 RATIO (10-20); Calcium,Total 8.9 mg/dL (8.5-10.1); Chloride 105 mmol/L (98-107); Creatinine, Serum 1.19 mg/dL (0.70-1.30); EST Glomerular Filtration Rate 72 mL/min (>60); Est Glom Filt Rate - Afr Amer 87 mL/min (>60); Estimated Creatinine Clearance 87.89 ml/min; Glucose 91 mg/dL (74-106); Potassium 3.7 mmol/L (3.5-5.1); Sodium Level 140 mmol/L (136-145)
[2021-05-27 23:38] LABS: Absolute Lymphocyte Count 2.08 X10^3/uL (0.83-4.51); Absolute Neutrophil Count 2.7 X10^3/uL (2.0-7.7); Basophil# 0.03 X10^3/uL; Basophil% 0.5 % (0-1); Eosinophil# 0.66 X10^3/uL; Hematocrit 38.8 % (40-54); Hemoglobin 12.9 g/dL (13.0-16.5); Lymphocyte # 2.08 X10^3/ul (0.83-4.51); Lymphocyte % 34.8 % (19-41); Mean Corp Hgb Conc 33.2 g/dL (32-36); Mean Corpuscular Hgb 29.5 pg (27.0-32.0); Mean Corpuscular Volume 88.6 fL (80-94); Mean Platelet Vol. 10.5 fl (6.2-12.0); Monocyte# 0.53 X10^3/uL; Monocyte% 8.9 % (0-10); NRBC Flagged by Analyzer 0 % (0-5); Neutrophil # 2.65 X10^3/uL (2.7-7.7); Neutrophil % 44.3 % (47-70); Platelet Count 241 K/mm3 (150-450); RBC Distribution Width CV 11.9 % (11.6-14.6); RBC Distribution Width SD 38.2 fl (35.1-43.9); Red Blood Count 4.38 M/mm3 (4.6-6.2)
[2021-05-28 01:57] VITALS: BP 130/89; PULSE 97; RESP 16; O2SAT 97
== END 2021-05-28 02:00 | disposition home or self-care (01) ==
PROVIDERS: Emergency Provider Emergency Medicine
DX: L03.115 Cellulitis of right lower limb (principal); L03.116 Cellulitis of left lower limb; M10.9 Gout, unspecified
CPT/HCPCS: 80048; 85025; 96365; 96366; 99283; J7040; J7050; A4216

== ENCOUNTER 2021-12-12 18:53 | Emergency (ER) | payer MEDICAID, SELFPAY ==
[2021-12-12 18:53] VITALS: BP 143/95; PULSE 129; RESP 16; TEMP 36.1; O2SAT 97; BMI 27.8
--- NOTE | 2021-12-12 20:21 | CT_ITS ---
STUDY: CT ABDOMEN AND PELVIS WITHOUT CONTRAST REASON FOR EXAM: Male, 41 years old. Right flank pain RADIATION DOSAGE (If Supplied By Facility): CTDIvol = ( 15.32 ) mGy, DLP = ( 765.51 ) mGycm TECHNIQUE: Transaxial images were obtained from the dome of the diaphragm to the symphysis pubis without oral contrast, and without intravenous contrast. Sagittal and coronal images were reconstructed. Individualized dose optimization techniques were used for this CT. COMPARISON: None. FINDINGS: The visualized lung bases are unremarkable. The visualized portions of the heart are within normal limits. Normal liver. Normal gallbladder and extrahepatic biliary system. Normal spleen. Normal pancreas. Normal bilateral adrenal glands. There is a 3 mm stone in the bladder at the right ureterovesical junction with minimal right hydroureteronephrosis. There is a nonobstructing 3 mm stone in the left upper pole calyx. Left ureter is clear. Normal visualized stomach. Normal small intestine. Normal colon. The appendix is visualized and appears normal. Normal abdominal aorta. Normal inferior vena cava. Normal retroperitoneum. Normal urinary bladder. Normal abdominal wall. Normal osseous structures. There is a benign hemangioma in L3. CT/Abdomen/Pelvis without Cont IMPRESSION: 1. 3 mm stone in the urinary bladder from the right side. 2. 3 mm stone in the left upper pole calyx. Electronically Signed: Malena Rice MD at 21:58 EST Tel , Service support ,
--- NOTE | 2021-12-12 20:21 | EX.ED.DYSGE1 ---
HPI History of Present Illness Chief Complaint: Flank Pain Detail of Chief Complaint: Flank pain that started yesterday Informant: patient Narrative Narrative: Patient presents to the emergency department complaint of flank pain that started yesterday. Patient went to urgent care today and they noted some blood in his urine and low-grade temp so they referred him to the emergency department. He complains of some dysuria today. He denies fevers at home. He did have a fall yesterday and hurt his left arm but did not think he hurt his back. Patient does not have history of kidney stones. PFSH PFS Medical History Clavicle fracture Gout Home Medications cephalexin 500 mg PO Q6 #40 cap 05/15/21 [Rx Last Taken Unknown] sulfamethoxazole-trimethoprim [Bactrim DS] 1 tab PO Q12H #20 tab 05/15/21 [Rx Last Taken Unknown] doxycycline monohydrate 100 mg PO BID #20 capsule 05/28/21 [Rx Last Taken Unknown] naproxen 500 mg PO BID #14 tab 12/12/21 [Rx Last Taken Unknown] Allergy/AdvReac Type Severity Reaction Status Date / Time No Known Allergies Allergy Verified 12/12/21 18:55 Surgical History H/O hernia repair Social History Smoking Status: Never smoker ROS ROS ED Constitutional Constitutional ED: Reports systems reviewed and no addt'l complaints, except as documented; Denies body ache(s), change in weight or chills Eyes Eyes: Denies acute decrease in peripheral vision, change in vision, double vision or loss of vision ENT ENT ED: Reports none; Denies ear pain, lip swelling, loss taste/smell, neck pain, otalgia or sore throat Cardiovascular Cardiovascular: Reports none; Denies abdominal pain, chest pain with activity, leg edema, lightheadedness, palpitations, rapid heart rate or syncope Respiratory/Chest Respiratory/Chest: Reports none; Denies change in mental status, dry cough, dyspnea, hemoptysis, shortness of breath at rest or shortness of breath with exertion Gastrointestinal Gastrointestinal: Reports none; Denies abdominal pain, change in stool character, diarrhea, hematemesis, hematochezia, melena, rectal bleeding or vomiting Genitourinary Genitourinary ED: Reports none; Denies abdominal discomfort, anuria, dysuria, genital pain or polyuria Musculoskeletal Musculoskeletal: Reports none and back pain; Denies arthralgias, difficulty walking, extremity pain, muscle weakness or myalgias Integumentary Reports none; Denies abscess or rash Neurologic Neurologic: Reports none; Denies abnormal gait, confusion, focal weakness, frequent falls, headache(s), loss of vision, numbness, paresthesias, radicular pain, vertigo or weakness Psychiatric Psychiatric: Reports systems reviewed and no addt'l complaints, except as documented and none; Denies behavioral changes, confusion, difficulty concentrating, hallucinations, suicidal ideation, tactile hallucinations or visual hallucinations Endocrine Endocrinology: Denies none, cold intolerance, excessive sweating, fatigue or heat intolerance Hematologic/Lymphatic Hematologic/Lymphatic: Reports none; Denies anemia, easy bleeding or easy bruising Allergic/Immunologic Allergic/Immunologic ED: Denies as per HPI, none, lip swelling, mouth swelling, throat swelling, tongue swelling or hives EXAM Physical Exam Const Vital Signs: 12/12/21 18:53 12/12/21 21:23 Temperature 97.0 F L Temperature Source Temporal Pulse Rate 129 H 110 H Respiratory Rate 16 16 Blood Pressure 143/95 H Blood Pressure Mean 111 Pulse Ox 97 98 Oxygen Delivery Method Room Air Room Air Positive well nourished and well developed General Appearance ED: well developed and NAD HEENT Reports TM's clear and moist mucous membranes normocephalic and atraumatic; Negative for trauma or tenderness Tympanic Membrane ED: Yes TM's clear Eyes PERRL and EOMs intact bilaterally General Eye ED: Negative for pale conjunctiva or scleral icterus Neck no lymphadenopathy, supple and no JVD General: Negative for tenderness Chest Wall inspection of chest normal and palpation of chest normal Chest: Negative for tenderness Resp normal respiratory effort and clear to auscultation bilaterally Effort and Inspection: Negative for respiratory distress or pain with movement Auscultation: Negative for rhonchi, wheezes or diminished lung sounds Cardio regular rate, regular rhythm, S1 normal heart sound, S2 normal heart sound and no murmurs Peripheral Pulses: pulses 2+ throughout GI normal to inspection, nondistended, normoactive bowel sounds, soft to palpation, non-tender, non-distended and no masses Back/Spine no thoracic nor lumbar tenderness Back/Spine Narrative: Mild CVA tenderness on the right. Patient also with some tenderness over the right lumbar paraspinal musculature. Negative straight leg raises. Deep tendon reflexes are plus 2 out of 4 bilaterally. Extremity normal to inspection General Extremety ED: Negative for edema General Extremity: Negative for edema Neuro oriented x3, CN's II-XII intact bilaterally, no sensory deficits noted and gait normal Sensorium / Orientation: awake, alert, oriented to person, oriented to place and oriented to time Motor Exam: strength 5/5 throughout and strength abnormal Psych mental status grossly normal Skin no rashes or lesions noted and no wounds MDM MDM MDM Narrative Medical decision making narrative: IV line established on arrival. Patient was given Toradol. Patient good pain relief with that. CBC with differential and chemistries unremarkable. Urinalysis showed 0-[address] flank obtained showed a 3 mm calcification in the bladder near the entrance of the right ureter with some mild hydroureter. I suspect patient likely passed a kidney stone. Patient advised to follow-up with primary care physician remediation consultant for no doc and will also refer to urology if symptoms persist. Lab Data Attestation: I reviewed the patient's lab results. Labs: Laboratory Results - last 24 hr 12/12/21 12/12/21 12/12/21 19:46 21:18 21:18 WBC 8.1 RBC 4.18 L Hgb 12.7 L Hct 38.1 L MCV 91.1 MCH 30.4 MCHC 33.3 RDW Std Deviation 44.1 H RDW Coeff of Solomon 13.2 Plt Count 161 MPV 10.8 Immature Gran % (Auto) 0.200 Neut % (Auto) 64.4 Lymph % (Auto) 18.0 L [place] % (Auto) 14.5 H Eos % (Auto) 2.7 Baso % (Auto) 0.2 Absolute Neuts (auto) 5.2 Absolute Lymphs (auto) 1.45 Nucleated RBC % 0 Sodium 138 Potassium 3.5 Chloride 103 Carbon Dioxide 30.0 Anion Gap 5 BUN 20 H Creatinine 1.36 H Estim Creat Clear Calc 76.90 Est GFR (MDRD) Af Amer 74 Est GFR (MDRD) Non-Af 62 BUN/Creatinine Ratio 14.7 Glucose 99 Calcium 9.0 Urine Color Yellow Urine Clarity Clear Urine pH 6.0 Ur Specific [place] 1.020 Urine Protein 30 H Urine Glucose (UA) Normal Urine Ketones 15 H Urine Occult Blood 50 H Urine Nitrite Negative Urine Bilirubin Negative Urine Urobilinogen 1 H Ur Leukocyte Esterase Negative Urine RBC 0-5 SEEN Urine WBC 0 SEEN Ur Squamous Epith Cells 0 SEEN Urine Bacteria 0 SEEN Urine Mucus 0 SEEN Radiography Diagnostic Testing: Clinical Impression(s) from Imaging Studies Abdomen/Pelvis CT 12/12/21 20:21 IMPRESSION: 1. 3 mm stone in the urinary bladder from the right side. 2. 3 mm stone in the left upper pole calyx. Electronically Signed: Malena Rice MD at 21:58 EST Tel , Service support , Discharge Plan Triage Chief Complaint: Flank Pain ED Provider: Kevin Ferrer Dx/Rx/DC Orders Clinical Impression: Kidney stone Instructions: ED Kidney Stone, Passed Prescriptions: New naproxen 500 MG tablet 500 mg PO BID Qty: 14 RF: 0 No Action sulfamethoxazole-trimethoprim [Bactrim DS] 800-160 mg tablet 1 tab PO Q12H Qty: 20 RF: 0 cephalexin 500 mg capsule 500 mg PO Q6 Qty: 40 RF: 0 doxycycline monohydrate 100 MG capsule 100 mg PO BID Qty: 20 RF: 0 Primary Care Provider: Care Physician,No Primary Referrals: Geovani Barlow MD [STAFF PHYSICIAN] - 3-5 Days Fernando Faria MD [STAFF PHYSICIAN] - As Needed Care Physician,No Primary [Primary Care Provider] - Disposition Disposition: Home, Self Care
[2021-12-12 21:06] LABS: Bacteria 0 SEEN /hpf (None Seen); Mucous, Urine 0 SEEN /hpf (<or=2+); Squamous Epithelial Cells - UA 0 SEEN /hpf (0-5); White Blood Cells 0 SEEN /hpf (0-5)
[2021-12-12] MEDS: 0.9% Normal Saline 1,000 ML 150 ML IV (21:16)
[2021-12-12] MEDS: Ketorolac 15 MG/ML Vial IV (21:17)
[2021-12-12 21:23] VITALS: PULSE 110; RESP 16; O2SAT 98
[2021-12-12 21:24] LABS: Color, Urine Yellow (Yellow); Glucose, Dipstick Normal (Normal); Ketone-Dipstick 15 mg/dl (Negative); Leukocyte Esterase-Dipstick Negative /ul (Negative); Nitrite-Dipstick Negative (Negative); Occult Blood-Urine 50 /ul (Negative); Protein-Dipstick 30 mg/dl (Negative); Urine Bilirubin Dipstick Negative (Negative); Urine Clarity Clear (Clear); Urine Urobilinogen 1 mg/dl (Normal)
[2021-12-12 21:37] LABS: Absolute Lymphocyte Count 1.45 X10^3/uL (0.83-4.51); Absolute Neutrophil Count 5.2 X10^3/uL (2.0-7.7); Basophil# 0.02 X10^3/uL; Basophil% 0.2 % (0-1); Eosinophil# 0.22 X10^3/uL; Eosinophils% 2.7 % (0-5); Hematocrit 38.1 % (40-54); Hemoglobin 12.7 g/dL (13.0-16.5); Lymphocyte # 1.45 X10^3/ul (0.83-4.51); Mean Corp Hgb Conc 33.3 g/dL (32-36); Mean Corpuscular Hgb 30.4 pg (27.0-32.0); Mean Corpuscular Volume 91.1 fL (80-94); Mean Platelet Vol. 10.8 fl (6.2-12.0); Monocyte# 1.17 X10^3/uL; Monocyte% 14.5 % (0-10); NRBC Flagged by Analyzer 0 % (0-5); Neutrophil # 5.17 X10^3/uL (2.7-7.7); Neutrophil % 64.4 % (47-70); Platelet Count 161 K/mm3 (150-450); RBC Distribution Width CV 13.2 % (11.6-14.6); RBC Distribution Width SD 44.1 fl (35.1-43.9); Red Blood Count 4.18 M/mm3 (4.6-6.2); White Blood Count 8.1 K/mm3 (4.4-11.0)
[2021-12-12 21:42] LABS: Red Blood Cells-Urine 0-5 SEEN /hpf (0-5)
[2021-12-12 21:50] LABS: Anion Gap 5 (5-15); BUN 20 mg/dL (7-18); BUN/Creat Ratio 14.7 RATIO (10-20); Chloride 103 mmol/L (98-107); Creatinine, Serum 1.36 mg/dL (0.70-1.30); EST Glomerular Filtration Rate 62 mL/min (>60); Est Glom Filt Rate - Afr Amer 74 mL/min (>60); Glucose 99 mg/dL (74-106); Potassium 3.5 mmol/L (3.5-5.1); Sodium Level 138 mmol/L (136-145)
== END 2021-12-12 22:48 | disposition home or self-care (01) ==
PROVIDERS: Emergency Provider Emergency Medicine; Visit Provider Emergency Medicine
DX: N20.0 Calculus of kidney (principal); N13.4 Hydroureter; M10.9 Gout, unspecified
CPT/HCPCS: 74176; 80048; 81001; 85025; 96361; 96374; 99283; J7030

== ENCOUNTER 2022-06-17 06:04 | Emergency (ER) | payer MEDICAID, SELFPAY ==
[2022-06-17 06:05] VITALS: PULSE 56; RESP 18; TEMP 36.4; O2SAT 97; BMI 29.0
[2022-06-17 06:09] VITALS: BP 157/102
[2022-06-17 06:37] LABS: Bacteria 0 SEEN /hpf (None Seen); Mucous, Urine 0 SEEN /hpf (<or=2+); Red Blood Cells-Urine 0 SEEN /hpf (0-5); Squamous Epithelial Cells - UA 0 SEEN /hpf (0-5); White Blood Cells 0 SEEN /hpf (0-5)
[2022-06-17 06:39] LABS: Absolute Lymphocyte Count 1.12 X10^3/uL (0.83-4.51); Absolute Neutrophil Count 7.4 X10^3/uL (2.0-7.7); Basophil# 0.03 X10^3/uL; Basophil% 0.3 % (0-1); Eosinophil# 0.17 X10^3/uL; Eosinophils% 1.8 % (0-5); Hematocrit 41.4 % (40-54); Hemoglobin 13.7 g/dL (13.0-16.5); Lymphocyte # 1.12 X10^3/ul (0.83-4.51); Lymphocyte % 12.2 % (19-41); Mean Corp Hgb Conc 33.1 g/dL (32-36); Mean Corpuscular Hgb 29.4 pg (27.0-32.0); Mean Corpuscular Volume 88.8 fL (80-94); Mean Platelet Vol. 11.1 fl (6.2-12.0); Monocyte# 0.42 X10^3/uL; Monocyte% 4.6 % (0-10); NRBC Flagged by Analyzer 0 % (0-5); Neutrophil # 7.41 X10^3/uL (2.7-7.7); Neutrophil % 80.7 % (47-70); Platelet Count 204 K/mm3 (150-450); RBC Distribution Width CV 12.3 % (11.6-14.6); RBC Distribution Width SD 39.7 fl (35.1-43.9); Red Blood Count 4.66 M/mm3 (4.6-6.2); White Blood Count 9.2 K/mm3 (4.4-11.0)
--- NOTE | 2022-06-17 06:46 | EX.ED.DYSGE1 ---
HPI History of Present Illness Chief Complaint: Flank Pain Informant: patient Narrative Narrative: Patient is a 42-year-old male with history of kidney stones presenting with left-sided flank pain. Patient states it started with left-sided back pain/left lower quadrant abdominal pain around midnight. The pain has progressed throughout the night and is now more in his left upper quadrant/left flank. States it feels similar to a prior kidney stone he had earlier this year however worse. The pain is been constant but fluctuates in intensity. Has associated nausea but no vomiting. No change in bowel movements. Denies any urinary symptoms such as frequency or hematuria. Does have some urgency of urination. No other complaints at this time. Has never seen a urologist for kidney stones. Did not take anything for symptoms prior to arrival. PFSH PFS Medical History Clavicle fracture Gout Home Medications cyclobenzaprine 10 mg tablet 10 mg PO TID PRN muscle spasm #20 tabs 06/17/22 [Rx Last Taken Unknown] ibuprofen 600 mg tablet 600 mg PO Q6H PRN pain #20 tabs 06/17/22 [Rx Last Taken Unknown] Allergy/AdvReac Type Severity Reaction Status Date / Time No Known Allergies Allergy Verified 12/12/21 18:55 Surgical History H/O hernia repair Social History Smoking Status: Never smoker ROS ROS ED Constitutional Constitutional ED: Denies chills or fever(s) Eyes Eyes: Denies blurry vision ENT ENT ED: Denies sore throat Cardiovascular Cardiovascular: Denies chest pain or palpitations Respiratory/Chest Respiratory/Chest: Denies cough Gastrointestinal Gastrointestinal: Reports abdominal pain and nausea; Denies constipation, diarrhea or vomiting Genitourinary Genitourinary ED: Denies dysuria, hematuria or urinary frequency Musculoskeletal Musculoskeletal: Reports back pain; Denies myalgias Integumentary Denies rash Neurologic Neurologic: Denies headache(s) or weakness EXAM Physical Exam Const Vital Signs: 06/17/22 06:05 06/17/22 06:09 06/17/22 06:09 Temperature 97.5 F L Temperature Source Oral Pulse Rate 56 L Respiratory Rate 18 Respiratory Pattern Normal Blood Pressure 157/102 H Blood Pressure Mean 120 Pulse Ox 97 Positive well nourished and well developed General Appearance ED: well developed and NAD HEENT Reports dry mucous membranes Mouth ED: Yes dry mucous membranes Mouth: dry mucous membranes Eyes PERRL and EOMs intact bilaterally Neck supple and no JVD Chest Wall inspection of chest normal Resp normal respiratory effort and clear to auscultation bilaterally Cardio regular rate, regular rhythm and no murmurs GI normal to inspection, nondistended, normoactive bowel sounds Palpation: tender LUQ; Negative for guarding Back/Spine General Back: CVA tenderness left Thoracic Spine / Upper Back: Negative for thoracic spinal tenderness or paraspinal muscle tenderness Lumbar Spine / Lower Back: Negative for lumbar spinal tenderness Extremity normal to inspection General Extremety ED: Negative for edema or tenderness General Extremity: Negative for edema Neuro oriented x3 Motor Exam: Negative for general weakness Psych mental status grossly normal Skin no rashes or lesions noted MDM MDM MDM Narrative Medical decision making narrative: Patient is over sudden onset of left-sided back and flank pain. Presentation concerning for kidney stone vs muscle spasms. Patient given IV fluids, morphine, Zofran and Toradol in the emergency room. He had a CT in December of this year which is reviewed. At that time it showed a 3 mm stone at the left upper pole of the kidney. Will check urinalysis for signs of infection or blood which would be consistent with a stone and check BMP for creatinine. Repeat evaluation he has improvement of symptoms. He notes his pain is worse with movement. He states that earlier in the week he was having muscle spasms. CBC, BMP and urinalysis are normal. Urinalysis does not show any white blood cells or red blood cells or other signs of inflammation. Given that he did just have a CT discussed treating this as a muscle spasm versus reCT and to definitively make sure there is not a kidney stone. Patient is comfortable treating this symptomatically. Regardless, his kidney stone is only 3 mm 6 months ago so even if it is a stone that should pass spontaneously. Patient be discharged home with muscle relaxers and anti-inflammatories. Patient and mother agreeable this plan of care. Patient discharged home in stable and improved condition. Lab Data Attestation: I reviewed the patient's lab results. Labs: Laboratory Results - last 24 hr 06/17/22 06/17/22 06/17/22 06:30 06:30 06:30 WBC 9.2 RBC 4.66 Hgb 13.7 Hct 41.4 MCV 88.8 MCH 29.4 MCHC 33.1 RDW Std Deviation 39.7 RDW Coeff of Solomon 12.3 Plt Count 204 MPV 11.1 Immature Gran % (Auto) 0.400 Neut % (Auto) 80.7 H Lymph % (Auto) 12.2 L [place] % (Auto) 4.6 Eos % (Auto) 1.8 Baso % (Auto) 0.3 Absolute Neuts (auto) 7.4 Absolute Lymphs (auto) 1.12 Nucleated RBC % 0 Sodium 137 Potassium 4.1 Chloride 105 Carbon Dioxide 27.0 Anion Gap 5 BUN 18 Creatinine 1.17 Estim Creat Clear Calc 85.79 Est GFR (MDRD) Af Amer 88 Est GFR (MDRD) Non-Af 73 BUN/Creatinine Ratio 15.4 Glucose 139 H Calcium 9.0 Urine Color Yellow Urine Clarity Clear Urine pH 7.0 Ur Specific [place] 1.010 Urine Protein Negative Urine Glucose (UA) Normal Urine Ketones Negative Urine Occult Blood Negative Urine Nitrite Negative Urine Bilirubin Negative Urine Urobilinogen Normal Ur Leukocyte Esterase Negative Urine RBC 0 SEEN Urine WBC 0 SEEN Ur Squamous Epith Cells 0 SEEN Urine Bacteria 0 SEEN Urine Mucus 0 SEEN Discharge Plan Triage Chief Complaint: Flank Pain ED Provider: Jessenia Mckinney Dx/Rx/DC Orders Clinical Impression: Acute left-sided back pain Instructions: ED Back Spasm, No Trauma, ED Flank Pain, Uncertain Cause Prescriptions: New ibuprofen 600 mg tablet 600 mg PO Q6H PRN (Reason: pain) Qty: 20 0RF cyclobenzaprine 10 mg tablet 10 mg PO TID PRN (Reason: muscle spasm) Qty: 20 0RF Primary Care Provider: Care Physician,No Primary Referrals: Jose Sharma MD [STAFF PHYSICIAN] - 3-5 Days if not improving Care Physician,No Primary [Primary Care Provider] - Activity Restrictions/Additional Instructions: Your urine test is not consistent with a kidney stone. Return if you have worsening symptoms. I suspect you have a back spasm which is causing your pains. Disposition Disposition: Home, Self Care
[2022-06-17 06:56] LABS: Anion Gap 5 (5-15); BUN 18 mg/dL (7-18); BUN/Creat Ratio 15.4 RATIO (10-20); Chloride 105 mmol/L (98-107); Creatinine, Serum 1.17 mg/dL (0.70-1.30); EST Glomerular Filtration Rate 73 mL/min (>60); Est Glom Filt Rate - Afr Amer 88 mL/min (>60); Estimated Creatinine Clearance 85.79 ml/min; Glucose 139 mg/dL (74-106); Potassium 4.1 mmol/L (3.5-5.1); Sodium Level 137 mmol/L (136-145)
[2022-06-17 07:02] LABS: Color, Urine Yellow (Yellow); Glucose, Dipstick Normal (Normal); Ketone-Dipstick Negative (Negative); Leukocyte Esterase-Dipstick Negative /ul (Negative); Nitrite-Dipstick Negative (Negative); Occult Blood-Urine Negative /ul (Negative); Protein-Dipstick Negative (Negative); Urine Bilirubin Dipstick Negative (Negative); Urine Clarity Clear (Clear); Urine Urobilinogen Normal (Normal)
[2022-06-17] MEDS: 0.9% Normal Saline 1,000 ML 250 ML IV (07:03)
[2022-06-17] MEDS: Ketorolac 15 MG/ML Vial IV (07:03)
[2022-06-17] MEDS: Ondansetron 4 MG/2 ML Vial IV (07:04)
[2022-06-17] MEDS: Morphine 4 MG/ML Syringe IV (07:04)
== END 2022-06-17 07:57 | disposition home or self-care (01) ==
PROVIDERS: Emergency Provider Emergency Medicine; Visit Provider Emergency Medicine
DX: N20.0 Calculus of kidney (principal); R39.15 Urgency of urination
CPT/HCPCS: 80048; 81001; 85025; 96361; 96374; 96375; 99282; J7030; J2405

== ENCOUNTER 2022-07-28 11:54 | Emergency (ER) | payer MEDICAID, SELFPAY ==
[2022-07-28 11:56] VITALS: BP 128/88; PULSE 115; RESP 14; TEMP 36.2; O2SAT 97; BMI 27.3
--- NOTE | 2022-07-28 12:54 | ED.VIS.LOWEX ---
HPI History of Present Illness Chief Complaint: Lower Extremity Injury Narrative Narrative: 42-year-old male presenting with right thigh pain. He states he was in senior care and just got out. He states that this has been an ongoing issue for over 3 months. He states it went away for short while and then returned. Patient denies any direct trauma. He states that at times it is burning. No history of DVT/PE. No risk factors. Patient states he is otherwise healthy. He has a history of drug abuse but states he is clean. [facility] Medical History Clavicle fracture Gout Home Medications cyclobenzaprine 10 mg tablet 10 mg PO TID PRN muscle spasm #20 tabs 06/17/22 [Rx Last Taken Unknown] ibuprofen 600 mg tablet 600 mg PO Q6H PRN pain #20 tabs 06/17/22 [Rx Last Taken Unknown] cyclobenzaprine 10 mg tablet 10 mg PO TID #10 tabs 07/28/22 [Rx Last Taken Unknown] Allergy/AdvReac Type Severity Reaction Status Date / Time No Known Allergies Allergy Verified 07/28/22 11:55 Surgical History H/O hernia repair Social History Smoking Status: Never smoker ROS ROS ED Constitutional Constitutional ED: Denies chills, fever(s) or sweats Eyes Eyes: Denies blurry vision or change in vision ENT ENT ED: Denies ear pain or sore throat Cardiovascular Cardiovascular: Denies chest pain, palpitations or racing heartbeat Respiratory/Chest Respiratory/Chest: Denies cough, dyspnea or sputum Gastrointestinal Gastrointestinal: Denies abdominal pain, constipation, diarrhea, nausea or vomiting Genitourinary Genitourinary ED: Denies dysuria, hematuria or urinary frequency Musculoskeletal Musculoskeletal: Reports other Details: Right thigh pain ; Denies arthralgias, myalgias or neck pain Integumentary Denies abscess, Abrasions or rash Neurologic Neurologic: Denies headache(s), paresthesias or weakness Psychiatric Psychiatric: Denies anxiety, depression, suicidal ideation or suicidal thoughts Endocrine Endocrinology: Denies polydipsia or polyuria EXAM Physical Exam Const Vital Signs: 07/28/22 11:56 Temperature 97.1 F L Temperature Source Temporal Pulse Rate 115 H Respiratory Rate 14 Blood Pressure 128/88 H Blood Pressure Mean 101 Pulse Ox 97 Oxygen Delivery Method Room Air Positive well nourished General Appearance ED: NAD HEENT Reports moist mucous membranes Eyes PERRL Resp normal respiratory effort Cardio regular rate and regular rhythm Back/Spine Lumbar Spine / Lower Back: Negative for lumbar spinal tenderness Extremity Extremity Narrative: Patient has mild pain elicited in the mid right thigh with the knee and hip in flexion. Motor and sensation intact throughout the right thigh and the rest of the right lower extremity. Pedal pulses 2+. Brisk cap refill to all 5 toes. Neuro oriented x3, CN's II-XII intact bilaterally, moves all extremities and no sensory deficits noted Sensorium / Orientation: alert Motor Exam: strength 5/5 throughout Psych mental status grossly normal Skin no wounds MDM MDM MDM Narrative Medical decision making narrative: I feel patient likely has a strain in the right thigh. I am unable to elicit this with stretching. I do not believe he has a DVT and there is no cords palpated. Wells score for DVT is 0. Patient counseled on stretching exercises. He is to use NSAIDs at home. He request a muscle relaxer and he was given a prescription for cyclobenzaprine. Patient stable for discharge. Impression: 1. right thigh strain Lab Data Attestation: I reviewed the patient's lab results. Discharge Plan Triage Chief Complaint: Lower Extremity Injury ED Provider: Rudy Adam Dx/Rx/DC Orders Instructions: ED Muscle Strain, Extremity Prescriptions: New cyclobenzaprine 10 mg tablet 10 mg PO TID Qty: 10 0RF No Action ibuprofen 600 mg tablet 600 mg PO Q6H PRN (Reason: pain) Qty: 20 0RF cyclobenzaprine 10 mg tablet 10 mg PO TID PRN (Reason: muscle spasm) Qty: 20 0RF Primary Care Provider: Care Physician,No Primary Referrals: [facility] [Outside] - 3-5 Days Care Physician,No Primary [Primary Care Provider] - Disposition Disposition: Home, Self Care
[2022-07-28 13:08] VITALS: BP 132/91; PULSE 114; RESP 20; O2SAT 96
== END 2022-07-28 13:09 | disposition home or self-care (01) ==
PROVIDERS: Emergency Provider Student in an Organized Health Care Education/Training Program; Visit Provider Student in an Organized Health Care Education/Training Program
DX: S76.911A Strain of unspecified muscles, fascia and tendons at thigh level, right thigh, initial encounter (principal); X58.XXXA Exposure to other specified factors, initial encounter
CPT/HCPCS: 99281

== ENCOUNTER 2024-07-25 20:33 | Emergency (ER) | payer SELFPAY ==
[2024-07-25 20:34] VITALS: BP 137/82; PULSE 111; RESP 18; TEMP 36.2; O2SAT 100; BMI 29.2
[2024-07-25] MEDS: Smz/Tmp Ds Tablet 1 TABLET PO (21:53)
--- NOTE | 2024-07-25 22:03 | EX.ED.DYSGE1 ---
HPI History of Present Illness Chief Complaint: Cellulitis [facility] Medical History Clavicle fracture Gout Home Medications ?Medication ?Instructions ?Recorded ?Last Taken ?Type cyclobenzaprine 10 mg tablet 10 mg PO TID PRN muscle spasm #20 06/17/22 Unknown Rx tabs ibuprofen 600 mg tablet 600 mg PO Q6H PRN pain #20 tabs 06/17/22 Unknown Rx cyclobenzaprine 10 mg tablet 10 mg PO TID #10 tabs 07/28/22 Unknown Rx sulfamethoxazole 800 1 tab PO BID 7 days #14 tabs 07/25/24 Unknown Rx mg-trimethoprim 160 mg tablet (Bactrim DS) Allergy/AdvReac Type Severity Reaction Status Date / Time No Known Allergies Allergy Verified 07/25/24 20:34 Surgical History H/O hernia repair Social History Smoking Status: Never smoker EXAM Physical Exam Const Vital Signs: 07/25/24 20:34 07/25/24 22:04 Temperature 97.2 F L 97.5 F L Temperature Source Temporal Pulse Rate 111 H 80 Respiratory Rate 18 16 Blood Pressure 137/82 H 122/84 H Blood Pressure Mean 100 96 Pulse Ox 100 98 Oxygen Delivery Method Room Air [facility] [place]arr[place] Medical decision making narrative: HISTORY OF PRESENT ILLNESS: 44-year-old male presents with 1 day of bilateral lower extremity redness. He notes he is at history of cellulitis. States this feels similar. Denies diabetes, fever, vomiting. REVIEW OF SYSTEMS: Pertinent positives: Bilateral lower extremity cellulitis Pertinent negatives: As per HPI PHYSICAL EXAM: Nursing triage notes reviewed, Vital signs reviewed Constitutional: please see mdm Extremities: No edema Neuro: No focal neurological deficits, cranial nerves II through XII intact, 5/5 strength in all extremities. Intact sensation to light touch in all extremities, 2+ reflexes bilateral patella tendons. Normal gait. No ataxia. Skin: Confluent erythematous rash noted to bilateral ankles proximally senior care up bilateral tibia. No crepitus, fluctuance induration or bullae. MEDICAL DECISION MAKING: Chief Complaint: Bilateral lower extremity cellulitis [facility] Narrative: Patient was initially tachycardic otherwise afebrile and nontoxic-appearing. Exam consistent with cellulitis. Will give anti-MRSA antibiotics in form of Bactrim. Will give prescription for 7 days and give strict return precautions. On reassessment tachycardia resolved. The patient and/or family, caregivers express understanding. The patient and/or family, caregivers agrees with the plan. Shared decision making: I will have a discussion with the patient and or visitors regarding risk/benefits of further testing or admission. They will be made aware of of the risk/benefits inherent in this decision they will be given the opportunity to voice understanding. Total critical care time today provided was at least 0 minutes. This excludes separately billable procedures. Critical care time (if documented) is secondary to the patient having high probability of clinically significant/life threatening deterioration in the patient's condition which required my urgent intervention. Impression: 1. Bilateral lower extremity cellulitis 2. History of cellulitis Dispo: Discharge home This note was generated with [employer] dictation software. It may contain incorrect words, spelling, and punctuation that were not noted in review of the chart prior to signing. Discharge Plan Triage Chief Complaint: Cellulitis ED Provider: Carroll Montanez Dx/Rx/DC Orders Instructions: Cellulitis Dc Prescriptions: New sulfamethoxazole-trimethoprim [Bactrim DS] 800-160 mg tablet 1 tab PO BID 7 Days Qty: 14 0RF No Action ibuprofen 600 mg tablet 600 mg PO Q6H PRN (Reason: pain) Qty: 20 0RF cyclobenzaprine 10 mg tablet 10 mg PO TID PRN (Reason: muscle spasm) Qty: 20 0RF cyclobenzaprine 10 mg tablet 10 mg PO TID Qty: 10 0RF Primary Care Provider: Care Physician,No Primary Referrals: Care Physician,No Primary [Primary Care Provider] - Activity Restrictions/Additional Instructions: Thank you for trusting us with your care today! Please take Tylenol (2 pills, 650 mg), ibuprofen (2 pills, 400 mg) every 6 hours as needed for pain and fever control. Please take antibiotic (Bactrim) as prescribed until course complete. Please return to the emergency department if your symptoms change or worsen. Specifically if severe redness that moves towards your heart over a matter of hours, pain is unbearable, you develop vomiting, fever or if you feel more ill. Please follow with your primary care physician for further outpatient evaluation and management. Print Language: Portuguese Disposition Disposition: Home, Self Care Discharge Date/Time: 07/25/24 22:07
[2024-07-25 22:04] VITALS: BP 122/84; PULSE 80; RESP 16; TEMP 36.4; O2SAT 98
== END 2024-07-25 22:07 | disposition home or self-care (01) ==
PROVIDERS: Emergency Provider Emergency Medicine; Visit Provider Emergency Medicine
DX: L03.116 Cellulitis of left lower limb (principal); L03.115 Cellulitis of right lower limb
CPT/HCPCS: 99282

== ENCOUNTER 2025-05-22 03:46 | Emergency (ER) | payer SELFPAY ==
[2025-05-22 03:48] VITALS: BP 150/90; PULSE 113; RESP 22; TEMP 36.8; O2SAT 95; BMI 31.1
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
[2025-05-22] MEDS: Orphenadrine 60 MG/2 ML Ampul IM (04:12)
[2025-05-22] MEDS: Ketorolac 30 MG/ML Syringe IM (04:12)
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
[2025-05-22 04:18] VITALS: BP 132/90; PULSE 98; RESP 20; TEMP 36.8; O2SAT 98
== END 2025-05-22 04:27 | disposition home or self-care (01) ==
LOC: ED 04:09
PROVIDERS: Emergency Provider Emergency Medicine; Visit Provider Emergency Medicine
DX: S22.20XA Unspecified fracture of sternum, initial encounter for closed fracture (principal); M79.604 Pain in right leg; S22.39XA Fracture of one rib, unspecified side, initial encounter for closed fracture
CPT/HCPCS: 96372; 99282